=== PATIENT | female | born 1960 | race Asian ===

== ENCOUNTER 2021-02-16 19:39 | Outpatient (CLI) | payer BC | END 2021-02-16 19:40 | disposition home or self-care (01) | LOC: COV 19:39 | PROVIDERS: ATTEND Internal Medicine | DX: Z01.812 Encounter for preprocedural laboratory examination (principal); Z20.822 Contact with and (suspected) exposure to COVID-19 ==

== ENCOUNTER 2021-04-06 11:50 | Emergency (ER) | payer BC ==
[2021-04-06] MEDS ORDERED: KETOROLAC 60 MG/2 ML VIAL IM STA (12:29)
[2021-04-06] MEDS ORDERED: CHERRY SYRUP 10 ML UDC PO ONE (12:29)
[2021-04-06] MEDS ORDERED: DEXAMETHASONE 10 MG/ML VIAL PO STA (12:29)
--- NOTE | 2021-04-06 12:32 | ED Physician Documentation ---
PD HPI CHEST PAIN - Stated complaint Stated Complaint: BACK PX, - Chief complaint Chief Complaint: Back Pain - History obtained from History obtained from: Patient - History of Present Illness Timing - onset: Today Timing - onset during: Rest Timing - duration: Hours Timing - details: Abrupt onset, Still present Pain level max: 8 Pain level now: 3 Quality: Sharp, Pain Location: Right chest, Upper back Radiation: No: Jaw, Neck Improved by: Rest Worsened by: Inspiration, Palpation Associated symptoms: Shortness of air. No: Diaphoresis, Nausea, Vomiting, Feeling faint / dizzy, General Weakness, Palpitations, Cough Similar symptoms before: Diagnosis (has had low back pain previously) Recently seen: Not recently seen - Additional information Additional information: 60-year-old female who is otherwise been well has developed some pain in her right back next to her shoulder blade that is worse with deep inspiration. She states this came on this morning while she was at rest and she is noted pain worsening with inspiration. She did have a brief period where she had severe pain and had radiation of the pain down her arm that has resolved. She denies any cough congestion or symptoms of illness. She has had a similar pain pr eviously in her lower back. She does not recall any heavy lifting, awkward positions or prolonged carrying. Review of Systems Constitutional: denies: Fever Eyes: denies: Decreased vision Ears: denies: Ear pain Nose: denies: Congestion Throat: denies: Sore throat Cardiac: reports: Chest pain / pressure. denies: Palpitations, Pedal edema, Calf pain Respiratory: denies: Dyspnea, Cough, Wheezing GI: denies: Abdominal Pain, Nausea, Vomiting : denies: Dysuria, Frequency Skin: denies: Rash Musculoskeletal: reports: Back pain. denies: Neck pain, Extremity pain PD PAST MEDICAL HISTORY - Past Medical History Past Medical History: No - Past Surgical History Past Surgical History: No - Allergies Allergies/Adverse Reactions: Allergies Allergy/AdvReac Type Severity Reaction Status Date / Time No Known Drug Allergies Allergy Verified 04/06/21 12:03 - Social History Does the pt smoke?: No Smoking Status: Never smoker Does the pt drink ETOH?: No Does the pt have substance abuse?: No - Immunizations Immunizations are current?: Yes - POLST Patient has POLST: No PD ED PE NORMAL - Vitals Vital signs reviewed: Yes (hypertensive ) - General General: Alert and oriented X 3, No acute distress, Well developed/nourished - HEENT HEENT: Atraumatic, PERRL, EOMI - Neck Neck: Supple, no meningeal sign, No bony TTP - Cardiac Cardiac: RRR, No murmur - Respiratory Respiratory: No respiratory distress, Clear bilaterally, Other (minimal point tenderness to the paraspinous muscles of the thoracic spine at the T6-T8 level) - Abdomen Abdomen: Soft, Non tender - Back Back: No CVA TTP, No spinal TTP - Derm Derm: Normal color, Warm and dry, No rash - Extremities Extremities: No deformity, No edema - Neuro Neuro: Alert and oriented X 3, fur designer 2-12 intact, No motor deficit, No sensory deficit, Normal speech Eye Opening: Spontaneous Motor: Obeys Commands Verbal: Oriented GCS Score: 15 - Psych Psych: Normal mood, Normal affect Results - Vitals Vitals: Vital Signs - 24 hr 04/06/21 12:00 Temperature 36.8 C Heart Rate 59 L Respiratory 16 Rate Blood Pressure 131/86 H O2 Saturation 100 Oxygen O2 Source Room air - Rads (name of study) chest Radiology: Prelim report reviewed (Impression: No acute cardiopulmonary process demonstrated radiographically.), EMP read indepedently, See rad report PD MEDICAL DECISION MAKING - ED course Complexity details: reviewed results, re-evaluated patient, considered differential, d/w patient ED course: Previous well 60-year-old female with acute right rhomboid muscle spasm has a negative appearing chest x-ray she is administered dexamethasone and Toradol in the emergency department. Departure - Departure Disposition: 01 Home, Self Care Clinical Impression: Spasm of back muscles Instructions: ED Spasm Back No Trauma Follow-Up: [facility] [Provider Group]
--- NOTE | 2021-04-06 12:52 | XRAY Report ---
PROCEDURE: Chest 2 View X-Ray INDICATIONS: Chest pain and right posterior paraspinous pain TECHNIQUE: 2 view(s) of the chest. COMPARISON: None. FINDINGS: Surgical changes and devices: None. Lungs and pleura: No pleural effusions or pneumothorax. Lungs are clear. Mediastinum: Mediastinal contours are normal. Heart size is normal. Bones and chest wall: No suspicious bony abnormalities. Soft tissues appear unremarkable. IMPRESSION: No acute cardiopulmonary process demonstrated radiographically. Reviewed by: Kain Clement MD on 04/06/2021 12:50 PM PDT Approved by: Kain Clement MD on 04/06/2021 12:50 PM PDT Station ID: [id number]
[2021-04-06 13:18] VITALS: BP 128/82
== END 2021-04-06 13:19 | disposition home or self-care (01) ==
LOC: ED 11:50
DX: M62.830 Muscle spasm of back (principal)
CPT/HCPCS: 96372; 99283